=== PATIENT | male | born 1950 | race Caucasian/White ===

== ENCOUNTER → 2020-09-26 15:57 | Outpatient (BNVA) | payer OTHER, SELFPAY | PROVIDERS: Family Provider Nurse Practitioner; PCP Nurse Practitioner; Referring Provider Nurse Practitioner; Visit Provider Podiatrist Foot & Ankle Surgery | DX: M79.671 Pain in right foot (principal) | CPT/HCPCS: 73610; 73630 ==

== ENCOUNTER → 2020-11-28 14:09 | Outpatient (BNVA) | payer OTHER, SELFPAY | PROVIDERS: Family Provider Nurse Practitioner; PCP Nurse Practitioner; Visit Provider Podiatrist Foot & Ankle Surgery | DX: M25.571 Pain in right ankle and joints of right foot (principal); S92.321A Displaced fracture of second metatarsal bone, right foot, initial encounter for closed fracture; X58.XXXA Exposure to other specified factors, initial encounter | CPT/HCPCS: 73610; 73630 ==

== ENCOUNTER → 2021-01-02 08:18 | Outpatient (BNVA) | payer OTHER, SELFPAY | PROVIDERS: Family Provider Nurse Practitioner; PCP Nurse Practitioner; Visit Provider Podiatrist Foot & Ankle Surgery | DX: M25.571 Pain in right ankle and joints of right foot (principal); S92.321A Displaced fracture of second metatarsal bone, right foot, initial encounter for closed fracture; X58.XXXA Exposure to other specified factors, initial encounter | CPT/HCPCS: 73630 ==

== ENCOUNTER → 2021-11-04 14:20 | Outpatient (BNVA) | payer OTHER, SELFPAY | PROVIDERS: Family Provider Nurse Practitioner; PCP Nurse Practitioner; Visit Provider Podiatrist Foot & Ankle Surgery | DX: M79.672 Pain in left foot (principal); S93.102D Unspecified subluxation of left toe(s), subsequent encounter; X58.XXXD Exposure to other specified factors, subsequent encounter | CPT/HCPCS: 73630 ==

== ENCOUNTER → 2022-03-25 13:58 | Outpatient (BNVA) | payer OTHER, SELFPAY | PROVIDERS: Family Provider Nurse Practitioner; PCP Nurse Practitioner; Visit Provider Podiatrist Foot & Ankle Surgery | DX: G57.62 Lesion of plantar nerve, left lower limb (principal); M79.672 Pain in left foot | CPT/HCPCS: 64455; 73630 ==

== ENCOUNTER → 2022-05-15 14:11 | Outpatient (BNVA) | payer OTHER, SELFPAY | PROVIDERS: Family Provider Nurse Practitioner; PCP Nurse Practitioner; Visit Provider Podiatrist Foot & Ankle Surgery | DX: M79.671 Pain in right foot (principal); G57.62 Lesion of plantar nerve, left lower limb; M84.374A Stress fracture, right foot, initial encounter for fracture; W10.8XXA Fall (on) (from) other stairs and steps, initial encounter | CPT/HCPCS: 73630; 99213; 99214 ==

== ENCOUNTER → 2022-07-17 13:01 | Outpatient (BNVA) | payer OTHER, SELFPAY | PROVIDERS: Family Provider Nurse Practitioner; PCP Nurse Practitioner; Visit Provider Podiatrist Foot & Ankle Surgery | DX: M84.374D Stress fracture, right foot, subsequent encounter for fracture with routine healing (principal); G57.62 Lesion of plantar nerve, left lower limb | CPT/HCPCS: 64455; 73630; 99213; J1100; J3301; J3490 ==

== ENCOUNTER → 2023-03-16 08:27 | Outpatient (BNVA) | payer OTHER, SELFPAY | PROVIDERS: Family Provider Nurse Practitioner; PCP Nurse Practitioner; Visit Provider Podiatrist Foot & Ankle Surgery | DX: S93.312A Subluxation of tarsal joint of left foot, initial encounter (principal); X58.XXXA Exposure to other specified factors, initial encounter | CPT/HCPCS: 99213 ==

== ENCOUNTER 2023-05-25 08:39 | Emergency (ER) | payer OTHER, SELFPAY ==
--- NOTE | 2023-05-25 08:41 | XRR_ITS ---
PROCEDURE INFORMATION: Exam: XR Chest Exam date and time: 05/25/2023 9:27 AM Age: 72 years old Clinical indication: Cough and dyspnea; Additional info: Dyspnea/cough TECHNIQUE: Imaging protocol: Radiologic exam of the chest. Views: 1 view. COMPARISON: CT abdomen pelvis w con* [id number] 05/13/2019 10:01 AM FINDINGS: Lungs: No focal airspace disease. Pleural spaces: Unremarkable. No pleural effusion. No pneumothorax. Heart/Mediastinum: Cardiomediastinal silhouette is within normal limits. Bones/joints: Unremarkable. XR/XR chest 1V portable [id number] IMPRESSION: No acute cardiopulmonary abnormality.
--- NOTE | 2023-05-25 08:44 | ED_ITS ---
HPI - SOB/Dyspnea General: Chief Complaint: Upper Respiratory Infection Stated Complaint: Cough, Chest congestion Time Seen by Provider: 05/25/23 08:40 Source: patient Mode of arrival: ambulatory History of Present Illness: HPI Narrative: 72 yo male with history of chronic respiratory illness presents to the emergency room with complaints cough wheezing and shortness of breath over the last few days after he had mowed the lawn had a lot of exposure to dust 2 days ago. He was up most of the night last night he has been using Alupent frequently but has not had very good relief of his symptoms with that. He denies any productive cough or fever. MD elicited complaint: shortness of breath and cough Pertinent past history: COPD Onset (ago): day(s) (2) Exacerbating factors: exertion and coughing Relieving factors: rest Known history of: COPD Associated symptoms: Deny abdominal pain, chest congestion, chest pain, cough, diaphoresis, dizziness, extremity pain, fever(s), hemoptysis, lightheadedness, myalgias, nausea, orthopnea, palpitations, paresthesias, polydipsia, polyuria, rash, sense of impending doom, syncope or vomiting Treatment prior to arrival: bronchodilator Review of Systems Const: Denies: fever(s), chills or diaphoresis ENMT: Denies: throat pain, ear or mastoid pain, nasal discharge or nasal congestion Card: Denies: chest pain, palpitations, lightheadedness, syncope or orthopnea Resp: Reports: dyspnea, non-productive cough and wheezing; Denies: hemoptysis or chest congestion GI: Denies: abdominal pain, nausea or vomiting : Denies: flank pain, dysuria, urinary frequency or urinary urgency Musc: Denies: extremity pain Skin/Breast: Denies: rash or pruritus Neuro: Denies: dizziness Endo: Denies: polyuria or polydipsia PFS ED PFSH: Medical History Borderline personality disorder Social History Smoking and tobacco status: never smoked Physical Exam Const: EXAM LIMITATIONS: altered mental status GENERAL APPEARANCE: cooperative and comfortable ORIENTATION/CONSCIOUSNESS: Yes awake, Yes oriented to person, Yes oriented to place and Yes oriented to time HENMT: COMMON NORMALS: normocephalic, atraumatic and hearing grossly normal bilaterally HEAD & SCALP: normocephalic and atraumatic Resp: AUSCULTATION: wheezes Cardio: COMMON NORMALS: regular rate, regular rhythm and No murmurs present (Cardio) RATE: regular rate RHYTHM: regular rhythm GI: COMMON NORMALS: Soft to palpation and No hepatosplenomegaly present AUSCULTATION: Yes normoactive bowel sounds PALPATION: Yes Soft to palpation, No Tenderness to palpation present (GI), No Guarding due to palpation present (GI) and Yes No hepatosplenomegaly present Extremity: COMMON NORMALS: normal to inspection, capillary refill normal, no clubbing, cyanosis or edema, no calf tenderness and no pedal edema Neuro: SENSORIUM/ORIENTATION: Yes oriented to person, Yes oriented to place and Yes oriented to time Skin: COMMON NORMALS: no rashes or lesions noted GENERAL SKIN EXAM: no rashes or lesions noted Course Vital Signs: Vital signs: Vital Signs Temperature 98.8 F 05/25/23 08:57 Pulse Rate 73 05/25/23 10:30 Respiratory Rate 22 H 05/25/23 09:20 Blood Pressure 135/76 05/25/23 10:30 Pulse Oximetry 94 05/25/23 10:30 Oxygen Delivery Me thod Room Air 05/25/23 09:20 MDM - SOB/Dyspnea Medical Decision Making Exacerbation of asthma. Chest x-ray unremarkable. Started on steroid taper. Gave a refill of DuoNebs and albuterol inhaler. Recheck if not improving. At patient's request also give us small prescription for promethazine with codeine Lab Data Labs/Radiology: Radiology Impressions Chest X-Ray 05/25/23 08:41 IMPRESSION: No acute cardiopulmonary abnormality. Discharge Plan Discharge Patient Disposition: Home Clinical Impression: Asthma exacerbation Condition: Stable Prescriptions: New prednisone 20 mg tablet 20 mg PO TID Qty: 15 0RF Rx Instructions: 1 p.o. 3 times daily x3 days, 1 p.o. twice daily x2 days, 1 p.o. daily x2 days albuterol sulfate 90 mcg/actuation HFA aerosol inhaler 2 inh INHALATION Q4H PRN (Reason: shortness of breath or wheezing) Qty: 18 0RF ipratropium-albuterol 0.5 mg-3 mg(2.5 mg base)/3 mL solution for nebulization 3 ml inhalation Q4H PRN (Reason: shortness of breath or wheezing) Qty: 180 0RF Rx Instructions: until breathing returns to target peak flow/parameters promethazine-codeine 6.25-10 mg/5 mL syrup 10 ml PO Q6H PRN (Reason: cough) Qty: 50 0RF No Action (DME) Custom Accomadative orthotic See Rx Instructions .ROUTE .MEDSUPPLY Qty: 1 0RF Rx Instructions: As directed celecoxib 200 mg Capsule 200 mg PO BID benzonatate 200 mg Capsule 200 mg PO BID garlic 100 mg Tablet 100 mg PO BID alendronate 70 mg Tablet 70 mg PO Q7D Rx Instructions: ON THURSDAY hydroxyzine HCl 50 mg tablet 100 mg PO BEDTIME tramadol 50 mg Tablet 50 mg PO Q6H PRN (Reason: Pain) sildenafil 100 mg Tablet 100 mg PO DAILY PRN (Reason: Sexual Activity) Rx Instructions: administer 30 minutes to 4 hours before activity levothyroxine 75 mcg Tablet 75 mcg PO DAILY milk thistle 150 mg Capsule 150 mg PO DAILY Rx Instructions: give with meal/snack methocarbamol 750 mg Tablet 750 mg PO QID PRN (Reason: Muscle Pain) trazodone 100 mg Tablet 100 mg PO DAILY Iron (ferrous sulfate) 325 mg (65 mg iron) Tablet 325 mg PO DAILY fluticasone propion-salmeterol 500-50 mcg/dose Blister With Device 1 inh INHALATION BID omeprazole 20 mg Capsule,Delayed Release(Dr/Ec) 20 mg PO DAILY montelukast 10 mg Tablet 10 mg PO QPM niacin 250 mg Tablet 250 mg PO DAILY albuterol sulfate 90 mcg/actuation Hfa Aerosol Inhaler 2 puff INHALATION Q6H PRN (Reason: Shortness Of Breath Or Wheezing) CoQ-10 30 mg Capsule 30 mg PO BID Vitamin D3 25 mcg (1,000 unit) Capsule 25 mcg PO DAILY guaifenesin 400 mg Tablet 400 mg PO DAILY tiotropium bromide 1.25 mcg/actuation Mist 2 puff INHALATION Q24H naloxone 4 mg/actuation [place],Non-Aerosol 4 mg INTRANASAL Q3M PRN (Reason: Opioid Overdose) Rx Instructions: spray 1 dose into ONE nostril; alternate nostrils w each dose until help arrives Discharge Orders: Discharge ED (Routine); Ordered 05/25/23 Ordered By: Tj Flynn Referrals: Myriam Rosario FNP [Primary Care Provider] - Discharge Diet: Usual diet Discharge Activity: Increase activity as tolerated Patient Instructions: Opioid Safety, Pain Management Activity Restrictions/Additional Instructions: Recommend steroid taper and aggressive use of the albuterol over the next several days if worsening or change return Coding Level of Care Code 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
[2023-05-25 08:57] VITALS: BP 128/79; PULSE 78; RESP 20; TEMP 37.1; O2SAT 98
[2023-05-25] MEDS: dexamethasone 10 mg/mL INJ IVP (09:11)
[2023-05-25 09:20] VITALS: PULSE 73; RESP 22; O2SAT 97
[2023-05-25] MEDS: ipratropium-albuterol 3 mL Neb INHALATION (09:20)
[2023-05-25 09:27] VITALS: PULSE 71
[2023-05-25 09:45] VITALS: BP 113/90; PULSE 68; O2SAT 100
[2023-05-25 10:30] VITALS: BP 135/76; PULSE 73; O2SAT 94
== END 2023-05-25 10:31 | disposition home or self-care (01) ==
PROVIDERS: Emergency Provider Family Medicine; PCP Nurse Practitioner
DX: J45.901 Unspecified asthma with (acute) exacerbation (principal)
CPT/HCPCS: 71045; 94640; 96374; 99284; J1100

== ENCOUNTER 2023-07-09 20:00 | Outpatient (CLI) | payer OTHER, SELFPAY | END 2023-07-09 20:01 | disposition home or self-care (01) | LOC: SLEEP 07-10 04:05 | PROVIDERS: PCP Nurse Practitioner; Visit Provider Nurse Practitioner | DX: G47.33 Obstructive sleep apnea (adult) (pediatric) (principal) | CPT/HCPCS: 95810 ==

== ENCOUNTER → 2023-08-05 11:25 | Outpatient (BNVA) | payer OTHER, SELFPAY | PROVIDERS: PCP Nurse Practitioner; Visit Provider Internal Medicine | DX: M54.50 Low back pain, unspecified (principal); L40.9 Psoriasis, unspecified; M47.898 Other spondylosis, sacral and sacrococcygeal region; M19.042 Primary osteoarthritis, left hand | CPT/HCPCS: 36415; 72202; 73120; 80053; 82550; 83516; 83520; 84100; 84443; 84550; 85025; 85651; 86140; 86160; 86162; 86200; 86235; 86255; 86376; 86431; 86704; 86803; 87340; 99204 ==

== ENCOUNTER → 2023-08-31 08:10 | Outpatient (BNVA) | payer OTHER, SELFPAY | PROVIDERS: PCP Nurse Practitioner; Visit Provider Podiatrist Foot & Ankle Surgery | DX: S93.312A Subluxation of tarsal joint of left foot, initial encounter; X58.XXXA Exposure to other specified factors, initial encounter | CPT/HCPCS: 99213 ==

== ENCOUNTER → 2023-09-01 11:16 | Outpatient (BNVA) | payer OTHER, SELFPAY | PROVIDERS: PCP Nurse Practitioner; Visit Provider Internal Medicine | DX: R76.8 Other specified abnormal immunological findings in serum (principal); M19.90 Unspecified osteoarthritis, unspecified site; G62.9 Polyneuropathy, unspecified | CPT/HCPCS: 99214 ==

== ENCOUNTER 2023-09-22 20:00 | Outpatient (CLI) | payer OTHER, SELFPAY | END 2023-09-22 20:01 | disposition home or self-care (01) | LOC: SLEEP 09-23 05:55 | PROVIDERS: PCP Nurse Practitioner; Visit Provider Nurse Practitioner | DX: G47.33 Obstructive sleep apnea (adult) (pediatric) (principal); M47.10 Other spondylosis with myelopathy, site unspecified | CPT/HCPCS: 95811 ==

== ENCOUNTER → 2024-01-18 12:54 | Outpatient (BNVA) | payer OTHER, SELFPAY | PROVIDERS: PCP Nurse Practitioner; Visit Provider Podiatrist Foot & Ankle Surgery | DX: S93.312A Subluxation of tarsal joint of left foot, initial encounter (principal); X58.XXXA Exposure to other specified factors, initial encounter; M79.672 Pain in left foot | CPT/HCPCS: 20600; J1100; J3301; J3490 ==

== ENCOUNTER → 2024-04-05 08:41 | Outpatient (BNVA) | payer OTHER, SELFPAY | PROVIDERS: PCP Nurse Practitioner; Referring Provider Anesthesiology Pain Medicine; Visit Provider Orthopaedic Surgery | DX: M54.9 Dorsalgia, unspecified (principal); M54.50 Low back pain, unspecified; G89.29 Other chronic pain; M54.41 Lumbago with sciatica, right side; M54.42 Lumbago with sciatica, left side | CPT/HCPCS: 36415; 72110; 80053; 81003; 85025; 99204 ==

== ENCOUNTER → 2024-04-26 09:11 | Outpatient (BNVA) | payer SELFPAY | PROVIDERS: PCP Nurse Practitioner; Visit Provider Family Medicine | DX: Z01.818 Encounter for other preprocedural examination (principal) | CPT/HCPCS: 93005 ==

== ENCOUNTER 2024-04-29 07:26 | Day surgery (SDC) | payer OTHER, SELFPAY ==
[2024-04-29] VITALS (10 sets, daily range): BP systolic 130–151; BP diastolic 63–76; PULSE 57–67; RESP 12–18; TEMP 36.1; O2SAT 94–100; BMI 26.5
[2024-04-29] MEDS: sodium chloride 0.9% 1,000 ML 30 ML IV (08:08)
--- NOTE | 2024-04-29 08:30 | ANES.PREANE2 ---
Pre-Anesthetic Assessment Height/Weight: Height 1.6 m Weight 68.039 kg Temp Pulse Resp BP Pulse Ox O2 Del Method 97 F L 60 16 130/63 98 Room Air 04/29/24 07:51 04/29/24 07:51 04/29/24 07:51 04/29/24 07:51 04/29/24 07:51 04/29/24 07:51 Preop Diagnosis: Lumbar stenosis with neurogenic claudication Operation Date: 04/29/24 09:10 Proposed Procedures p Spinal Cord Stimulator Placement and Spinal cord generator placement(Not Applicable) - Shadi Joyner, DO Familial anesthetic complications: None Was Beta Ana taken within 24 hours: N/A Was Clonidine taken within 24 hours: N/A Last intake: Intake Last Liquid Date 04/28/24 Last Liquid Time 21:00 Last Solid Date 04/28/24 Last Solid Time 16:00 Social No alcohol and No tobacco Exam alert, oriented x 3, clear to auscultation bilaterally and regular rate & rhythm Airway Mallampati: Class I Dentition: full Pulmonary Sleep Apnea CV/HEM Coronary Artery Disease (CABG in 2005 able to achieve greater than 4 METS w/ out cardiac sxs) GI Gastroesophageal Reflux Disease Metabolic Thyroid Disease Anesthetic Plan ASA status: 3 Anesthesia: General Risk of > 500 ml blood loss (7ml/kg in children): No Medications/Allergies Home Medications Medication Instructions Recorded Confirmed Last Taken Type Custom Accomadative orthotic #1 ea 01/02/21 04/05/24 Unknown Rx albuterol sulfate 90 mcg/actuation 2 inh inhalation Q4H PRN shortness 05/25/23 04/28/24 04/29/24 06:30 Rx aerosol inhaler of breath or wheezing #18 grams alendronate 70 mg tablet 70 mg PO Q7D 05/25/23 04/28/24 04/24/24 History cholecalciferol (vitamin D3) 25 25 mcg PO DAILY 05/25/23 04/28/24 04/28/24 History mcg (1,000 unit) capsule (Vitamin D3) coenzyme Q10 30 mg capsule 30 mg PO BID 05/25/23 04/28/24 04/28/24 History ferrous sulfate 325 mg (65 mg 325 mg PO DAILY 05/25/23 04/28/24 04/28/24 History iron) tablet (Iron (ferrous sulfate)) fluticasone 500 mcg-salmeterol 50 1 inh inhalation BID 05/25/23 04/28/24 04/28/24 History mcg/dose blistr powdr for inhalation garlic 100 mg tablet 100 mg PO BID 05/25/23 04/28/24 04/28/24 History guaifenesin 400 mg tablet 400 mg PO DAILY 05/25/23 04/28/24 05/25/23 History hydroxyzine HCl 50 mg tablet 100 mg PO BEDTIME 05/25/23 04/28/24 04/28/24 History ipratropium 0.5 mg-albuterol 3 mg 3 ml inhalation Q4H PRN shortness 05/25/23 04/28/24 04/28/24 Rx (2.5 mg base)/3 mL nebulization of breath or wheezing #180 mL soln levothyroxine 75 mcg tablet 75 mcg PO DAILY 05/25/23 04/28/24 04/29/24 06:30 History methocarbamol 750 mg tablet 750 mg PO QID PRN Muscle Pain 05/25/23 04/28/24 04/28/24 History milk thistle 150 mg capsule 150 mg PO DAILY 05/25/23 04/28/24 04/28/24 History montelukast 10 mg tablet 10 mg PO QPM 05/25/23 04/28/24 04/28/24 History naloxone 4 mg/actuation nasal spray 4 mg intranasal Q3M PRN Opioid 05/25/23 04/28/24 Unknown History Overdose niacin 250 mg tablet 250 mg PO DAILY 05/25/23 04/28/24 04/28/24 History omeprazole 20 mg capsule,delayed 20 mg PO DAILY 05/25/23 04/28/24 04/29/24 06:30 History release promethazine 6.25 mg-codeine 10 10 ml PO Q6H PRN cough #50 mL 05/25/23 04/28/24 Unknown Rx mg/5 mL syrup tiotropium bromide 1.25 2 puff inhalation Q24H 05/25/23 04/28/24 04/28/24 History mcg/actuation mist for inhalation tramadol 50 mg tablet 50 mg PO Q6H PRN Pain 05/25/23 04/28/24 Unknown History trazodone 100 mg tablet 100 mg PO DAILY 05/25/23 04/28/2424 History benralizumab 30 mg/mL subcutaneous 30 mg SUBCUT .q3 mon 04/26/24 04/28/24 04/28/24 History syringe (Fasenra) naproxen 500 mg tablet (Naprosyn) 500 mg PO BID 04/26/24 04/28/24 Unknown History Allergies Allergy/AdvReac Type Severity Reaction Status Date / Time meloxicam [From Mob] Allergy Intermediate rash Verified 04/29/24 07:37 chloroquine Allergy ADR-Depress Verified 04/29/24 07:37 ion Current Medications Generic Name Dose Route Start Last Admin Trade Name Freq PRN Reason Stop Dose Admin Sodium Chloride 1,000 mls @ 30 mls/hr 04/29/24 07:45 04/29/24 08:08 Sodium Chloride 0.9% IV 04/30/24 07:44 30 mls/hr .Q24H NICHOLAS Administration PFSH Anesthesia Medical History Lumbago Osteoarthritis Borderline personality disorder Social History Smoking and tobacco/nicotine status: never used tobacco/nicotine Data Anesthesia Cardiac Studies: No Data to Display
--- NOTE | 2024-04-29 08:44 | W.PM.OPSUD ---
Surgery/Procedure H&P Update DATE OF PROCEDURE: April 29, 2024 DATE H&P PERFORMED: 04/26/24 H&P UPDATE INFORMATION: I have reviewed H&P completed within last 30 days, I have examined patient prior to procedure and No changes to prior documentation PREOP DIAGNOSIS: Lumbar stenosis with neurogenic claudication PLANNED PROCEDURE: Operation Date: 04/29/24 09:10 Proposed Procedures p Spinal Cord Stimulator Placement and Spinal cord generator placement(Not Applicable) - Shadi Joyner DO
[2024-04-29] MEDS: ceFAZolin 2,000 MG in sodium chloride 0.9% (plus) 50 ML 100 MG IV (09:21)
[2024-04-29] MEDS: lidocaine-epi 1% PF 1:200,000 30 mL SDV INJECTION (09:42)
--- NOTE | 2024-04-29 11:05 | XR_ITS ---
WS: [id number] XR lumbar spine 2-3V* [id number] REASON FOR EXAM: SPINAL CORD STIMULATOR PLACEMENT FINDINGS: Placement of dorsal column stimulator at the lower thoracic level. The lateral view demonstrates a st imulator to be in the posterior next thoracic spinal canal. XR/XR lumbar spine 2-3V* [id number] IMPRESSION: Dorsal column stimulator placement as above.
--- NOTE | 2024-04-29 11:38 | P.OP_ITS ---
Operative Report Date of procedure: April 29, 2024 Pre-op diagnosis: Lumbar stenosis with neurogenic claudication Post-op diagnosis: same Procedure done: 1. Placement of neurostimulator 2. Placement of neurostimulator battery Surgeon: Shadi Joyner DO Estimated blood loss (mL): 50 Procedure: 1. Placement of neurostimulator 2. Placement of neurostimulator battery patient brought the operative suite after undergoing anesthesia he was placed in the prone position. All areas impingement well-padded. Patient's prepped draped normal sterile fashion. Attention was was brought to the placement of the neurostimulator. This was done by making skin incision over the T9-10 level. This confirmed under x-ray guidance. The subperiosteal dissection was made at the transverse processes of T9-T10 retractors were placed. Laminectomy was performed using rongeur and high-speed drill and Kerrison rongeurs ligamentum flavum was taken down dura was exposed. The trial was slid up. And then the nerve stimulator paddle was placed. Patient has scoliotic curve and cannot get it directly in the middle however confirm with the [employer] rep that the T8 vertebral body is completely covered and this was the main goal than half of the T7 was covered. The wires were sutured into the spinous process of T10. Next tension was brought to performing the incision over the left flank for the battery. This was done using knife followed by Bovie subcutaneous pocket was developed. Using Bovie and finger dissection. The wires were then pulled through the battery incision from the laminectomy incision. Wires were pulled through placing the battery and confirmed that they were working. Battery was then placed on top of the wires inside of the battery pouch wounds were then irrigated and closed with Vicryl and Monocryl suture. Sterile dressings were applied patient transferred to the PACU in stable condition.
[2024-04-29] MEDS: HYDROcodone-acetaminophen 5-325 mg Tablet 1 TAB PO (12:17)
--- NOTE | 2024-04-29 12:45 | ANE.PACU2 ---
Inpatient post-anesthesia follow up: Airway intact: Yes Vital signs: Temperature 97 F Pulse Rate 58 Respiratory Rate 18 Blood Pressure 141/71 Pulse Oximetry 94 Oxygen Delivery Me thod Room Air Oxygen Flow Rate 6 Fraction of Inspir ed Oxygen Hydration adequate: Yes Nausea and vomiting: No Pain level: 1 Mental status: Baseline
== END 2024-04-29 12:48 | disposition home or self-care (01) ==
PROVIDERS: PCP Nurse Practitioner; Visit Provider Orthopaedic Surgery
PROC: (CPT 63685; principal; 2024-04-29 09:00)
DX: M48.062 Spinal stenosis, lumbar region with neurogenic claudication (principal); G47.30 Sleep apnea, unspecified; I25.10 Atherosclerotic heart disease of native coronary artery without angina pectoris; Z95.1 Presence of aortocoronary bypass graft; K21.9 Gastro-esophageal reflux disease without esophagitis; M19.90 Unspecified osteoarthritis, unspecified site
CPT/HCPCS: 63655; 63685; 72100; 76000; C1778; C1820; J0690; J1100; J2405; J2704; J2710; J3010; J3490; J7030

== ENCOUNTER → 2024-05-12 14:09 | Outpatient (BNVA) | payer OTHER, SELFPAY | PROVIDERS: PCP Nurse Practitioner; Visit Provider Orthopaedic Surgery | DX: M54.9 Dorsalgia, unspecified (principal); Z48.89 Encounter for other specified surgical aftercare | CPT/HCPCS: 72072; 72100; 99024 ==

== ENCOUNTER → 2024-06-01 14:45 | Outpatient (BNVA) | payer OTHER, SELFPAY | PROVIDERS: PCP Nurse Practitioner; Visit Provider Podiatrist Foot & Ankle Surgery | DX: S93.312A Subluxation of tarsal joint of left foot, initial encounter (principal); X58.XXXA Exposure to other specified factors, initial encounter | CPT/HCPCS: 99213 ==

== ENCOUNTER → 2024-06-09 14:46 | Outpatient (BNVA) | payer OTHER, SELFPAY | PROVIDERS: PCP Nurse Practitioner; Visit Provider Orthopaedic Surgery | DX: Z48.89 Encounter for other specified surgical aftercare (principal) | CPT/HCPCS: 72070; 72100; 99024 ==

== ENCOUNTER → 2024-08-10 12:53 | Outpatient (BNVA) | payer OTHER, SELFPAY | PROVIDERS: PCP Nurse Practitioner; Referring Provider Nurse Practitioner; Visit Provider Surgery | DX: K43.2 Incisional hernia without obstruction or gangrene | CPT/HCPCS: 99203 ==

== ENCOUNTER 2024-08-25 12:04 | Outpatient (CLI) | payer OTHER, SELFPAY ==
--- NOTE | 2024-08-25 12:30 | CT_ITS ---
WS: [id number] CT ABDOMEN AND PELVIS WITH CONTRAST HISTORY: Ventral Hernia TECHNIQUE: Imaging performed of the abdomen and pelvis with IV contrast. Single phase imaging of the abdomen. Coronal and sagittal reformats are submitted. All CT scans at [facility] use at [address] [facility] one of these dose optimization techniques: automated exposure control; mA and/or kV adjustment per patient size (includes targeted exams where dose is matched to clinical indication); or iterative re construction. IV CONTRAST: Omnipaque 350; 100 mL IV. Oral contrast: Yes. DLP: 309.28 mGy.cm COMPARISON: 05/13/2019 Lower thorax: Dependent changes at the lung bases. Slight elevation of the LEFT hemidiaphragm. Heart is normal size. No hiatal hernia. Liver/biliary system: Normal size with no intrahepatic dilatation. Gallbladder: Slightly contracted gallbladder. No adjacent inflammation. Pancreas: Normal size pancreas and pancreatic duct. No adjacent inflammation. Spleen: Normal size spleen. No mass or infarct. Adrenal glands: Normal. Right kidney: Exophytic cyst from the superior pole measures 12 x 10 mm. No change since 05/13/2019. N onobstructing calcifications in the lower pole. Left kidney: Normal kidney with no obstruction. Nonobstructing calcifications in the lower pole. Aorta: Mild atherosclerosis with no aneurysm. Mild atherosclerotic plaque at the origin of the SMA an d celiac axis. Lymphadenopathy: None. Free fluid: None. GI tract: Stomach is well distended with oral contrast. No small bowel obstruction. Moderate diffuse constipation. Mild sigmoid diverticulosis. Prior appendectomy. Abdominal wall: Small ventral abdominal wall hernia at the umbilicus contains fat only. In the suprau mbilical abdominal wall extending just to the LEFT of midline is a hernia measuring 2.4 cm at its carmen fice. Herniated omental fat but no GI tract. Very slight stranding within the omental fat. No additio nal hernias are identified. Pelvis: No free fluid. Urinary bladder is not distended. Soft tissue nodular enhancement measuring 14 x 11 mm is probably at the base of the urethra. This was not present in 2019. Bones: Degenerative changes in the lumbar spine. There are a few scattered lytic areas within the lum bar vertebral bodies which are also present in 2019. Prior LEFT hip arthroplasty. CT/CT abdomen pelvis w con* [id number] IMPRESSION: 1. Supraumbilical ventral abdominal wall hernia contains omental fat only. Her alexis orifice is just slightly to the LEFT of midline measuring 2.4 cm. 2. There is an additional very small umbilical hernia containing fat only. 3. Bilateral nonobstructing renal calculi. Simple cyst upper pole RIGHT kidney . 4. Focal soft tissue nodular enhancement at the base of the urethra measures 1 4 x 11 mm. This was not present in 2009. This could potentially be a polyp or n eoplasm. Consider evaluation by urology.
[2024-08-25 13:58] LABS: Blood Urea Nitrogen 20 mg/dL (8-23)
[2024-08-25] MEDS: iohexol 350 mg/mL 500 mL Btl (per mL) IV (13:58)
[2024-08-25] MEDS: iohexol 350 mg/mL 500 mL Btl (per mL) PO (13:59)
== END 2024-08-25 12:05 | disposition home or self-care (01) ==
LOC: RAD 12:05
PROVIDERS: PCP Nurse Practitioner; Visit Provider Surgery
DX: K43.9 Ventral hernia without obstruction or gangrene (principal); K42.9 Umbilical hernia without obstruction or gangrene; N28.1 Cyst of kidney, acquired; N20.0 Calculus of kidney; N36.8 Other specified disorders of urethra; K57.90 Diverticulosis of intestine, part unspecified, without perforation or abscess without bleeding; M51.369 Other intervertebral disc degeneration, lumbar region without mention of lumbar back pain or lower extremity pain; Z90.49 Acquired absence of other specified parts of digestive tract; Z96.642 Presence of left artificial hip joint
CPT/HCPCS: 74177; 82565; 84520

== ENCOUNTER → 2024-09-21 09:20 | Outpatient (BNVA) | payer OTHER, SELFPAY | PROVIDERS: PCP Nurse Practitioner; Visit Provider Surgery | DX: Z09 Encounter for follow-up examination after completed treatment for conditions other than malignant neoplasm (principal) | CPT/HCPCS: 99204; 99214 ==

== ENCOUNTER 2024-10-17 07:57 | Day surgery (SDC) | payer OTHER, SELFPAY ==
[2024-10-17] VITALS (11 sets, daily range): BP systolic 112–149; BP diastolic 60–92; PULSE 76–84; RESP 15–20; TEMP 36.2–36.7; O2SAT 92–99; BMI 26.0
--- NOTE | 2024-10-17 07:04 | W.PM.OPSUD ---
Surgery/Procedure H&P Update DATE OF PROCEDURE: October 17, 2024 DATE H&P PERFORMED: 09/21/24 H&P UPDATE INFORMATION: I have reviewed H&P completed within last 30 days, I have examined patient prior to procedure, No changes to prior documentation and H&P is in [facility] EMR on date indicated PLANNED PROCEDURE: Operation Date: 10/17/24 09:45 Proposed Procedures p lap possible open ventral hernia repair with mesh [id number], K43.2(Not Applicable) - Willam Rodriguez MD
--- NOTE | 2024-10-17 08:40 | ANES.PREANE2 ---
Pre-Anesthetic Assessment Height/Weight: Height 1.6 m Preop Diagnosis: Laparoscopic possible open ventral incisional hernia pair with mesh Operation Date: 10/17/24 09:45 Proposed Procedures p lap possible open ventral hernia repair with mesh [id number], K43.2(Not Applicable) - Willam Rodriguez MD Was Beta Ana taken within 24 hours: N/A Was Clonidine taken within 24 hours: N/A Social No tobacco Exam alert, oriented x 3, clear to auscultation bilaterally and regular rate & rhythm Airway Submandibular: within normal limits Cervical ROM: within normal limits Mallampati: Class II Dentition: full History/ROS No significant history except as noted and No significant complaints Pulmonary Asthma, Cough and Exertional Dyspnea CV/HEM Coronary Artery Disease 4 vessel bypass 2005 None reported Hepatic None reported GI None reported Metabolic None reported Musc/skel Lower Back Pain DC stimulator Neuropsych Borderline personality disorder Anesthetic Plan ASA status: 3 Anesthesia: Anesthesia Evaluation and General Risk of > 500 ml blood loss (7ml/kg in children): No Medications/Allergies Home Medications Medication Instructions Recorded Confirmed Last Taken Type Custom Accomadative orthotic #1 ea 01/02/21 09/21/24 Unknown Rx albuterol sulfate 90 mcg/actuation 2 inh inhalation Q4H PRN shortness 05/25/23 10/13/24 10/12/24 Rx aerosol inhaler of breath or wheezing #18 grams alendronate 70 mg tablet 70 mg PO Q7D 05/25/23 10/13/24 10/09/24 History cholecalciferol (vitamin D3) 25 25 mcg PO DAILY 05/25/23 10/17/24 10/16/24 History mcg (1,000 unit) capsule (Vitamin D3) coenzyme Q10 30 mg capsule 30 mg PO BID 05/25/23 10/17/24 10/16/24 History ferrous sulfate 325 mg (65 mg 325 mg PO DAILY 05/25/23 10/17/24 10/16/24 History iron) tablet (Iron (ferrous sulfate)) fluticasone 500 mcg-salmeterol 50 1 inh inhalation BID 05/25/23 10/17/24 10/17/24 History mcg/dose blistr powdr for inhalation garlic 100 mg tablet 100 mg PO BID 05/25/23 10/17/24 10/16/24 History guaifenesin 400 mg tablet 400 mg PO DAILY 05/25/23 10/17/24 10/16/24 History hydroxyzine HCl 50 mg tablet 100 mg PO BEDTIME 05/25/23 10/17/24 10/16/24 History ipratropium 0.5 mg-albuterol 3 mg 3 ml inhalation Q4H PRN shortness 05/25/23 10/17/24 04/28/24 Rx (2.5 mg base)/3 mL nebulization of breath or wheezing #180 mL soln levothyroxine 75 mcg tablet 75 mcg PO DAILY 05/25/23 10/17/24 10/16/24 History methocarbamol 750 mg tablet 750 mg PO QID PRN Muscle Pain 05/25/23 10/17/24 10/16/24 History milk thistle 150 mg capsule 150 mg PO DAILY 05/25/23 10/17/24 10/16/24 History montelukast 10 mg tablet 10 mg PO QPM 05/25/23 10/17/24 10/16/24 History niacin 250 mg tablet 250 mg PO DAILY 05/25/23 10/17/24 10/16/24 History omeprazole 20 mg capsule,delayed 20 mg PO DAILY 05/25/23 10/17/24 10/16/24 History release tiotropium bromide 1.25 2 puff inhalation Q24H 05/25/23 10/17/24 10/17/24 History mcg/actuation mist for inhalation tramadol 50 mg tablet 50 mg PO Q6H PRN Pain 05/25/23 10/17/24 10/16/24 History trazodone 100 mg tablet 100 mg PO DAILY 05/25/23 10/17/24 10/16/24 History benralizumab 30 mg/mL subcutaneous 30 mg SUBCUT .q3 mon 04/26/24 10/13/24 09/07/24 History syringe (Fasenra) naproxen 500 mg tablet (Naprosyn) 500 mg PO BID 04/26/24 10/13/24 10/13/24 History Allergies Allergy/AdvReac Type Severity Reaction Status Date / Time meloxicam [From Mobic] Allergy Intermediate rash Verified 09/21/24 09:23 chloroquine Allergy ADR-Depress Verified 09/21/24 09:23 ion [facility] Anesthesia Medical History (Updated 09/21/24 @ 09:31 by COREY Adame) Lumbago Osteoarthritis Borderline personality disorder Family History Mother Colon cancer Social History Smoking and tobacco/nicotine status: never used tobacco/nicotine Substance/Drug Use: former Data Anesthesia Cardiac Studies: No Data to Display
[2024-10-17] MEDS: albuterol 2.5 mg/3 mL Neb INHALATION (08:51)
[2024-10-17] MEDS: sodium chloride 0.9% 1,000 ML 30 ML IV (09:05)
[2024-10-17] MEDS: ceFAZolin 2,000 mg SDV 2000 MG IVP (09:13)
[2024-10-17] MEDS: BUPivacaine 0.25% INJ 30 mL INJECTION (10:57)
[2024-10-17] MEDS: lidocaine-epi 1% PF 1:200,000 30 mL SDV INJECTION (11:13)
--- NOTE | 2024-10-17 11:20 | P.OP_ITS ---
Operative Report Date of procedure: October 17, 2024 Pre-op diagnosis: Ventral incisional hernia Post-op diagnosis: Epigastric ventral incisional hernia, umbilical hernia. Post-op findings: There was an epigastric ventral incisional hernia containing fat from the falciform ligament, there was an umbilical hernia containing fat from the infraumbilical fat. Procedure done: Laparoscopic ventral incisional hernia repair with mesh, transversus abdominis block Implants: 6 inches ventral light mesh Specimens removed/disposition: None Pathology: None Surgeon: Willam Rodriguez MD [facility] Coordinator: KELLY OR STaff Estimated blood loss: 5 Complications: none Brief History: 74-year-old with a ventral incisional hernia who presented to my office for sascha luandrea, after discussion we will resume benefits as documented my preop note we decided to proceed. Procedure: Patient was brought into the OR, he was placed in the supine position. General anesthesia was then given. The abdomen was accessed via Optiview trocar measuring 5 mm in the left upper quadrant position, initial pneumoperitoneum was achieved and no evidence of visceral injury during entry was noted. Additional 5 mm trocars were placed in the right upper quadrant and right lower quadrant, abdomen metered trocar was placed in the right flank under direct visualization. 2 hernia defects were identified, the epigastric hernia containing significant amount of fat arising from the falciform ligament, this fat was reduced into the abdominal cavity with the help of LigaSure. The falciform ligament was then taken down to allow for proper landing zone in the top aspect of the hernia. I then placed my attention to the umbilical hernia, small amount of fat was reduced, I then proceeded to clear the periumbilical fat to allow for a good landing zone for the hernia, this was done with LigaSure. The milk hernia measured about 0.5 cm and I did not consider that closure of the defect was necessary. The supraumbilical hernia measure about 3 Cm and therefore I decided to proceed with laparoscopic closure of the defect, I did this using #2-0 STRATAFIX suture. Once the defect was completely closed I proceeded to insert into the abdomen as [address] mesh. The positioning suture was then retrieved via the midline in the supraumbilical location with a suture passer. I then proceeded to fix the mesh to the anterior abdominal wall in a double crown fashion using absorbable tackers. The exoskeleton of the mesh was retrieved. Adequate coverage of the hernia defects and good opposition of the mesh to the anterior abdominal wall was noted. No bleeding was noted. Then mL of Marcaine was infiltrated in the left transverse abdominal muscle and 10 mL of Marcaine was infiltrated in the right transverses abdominal muscle under direct visualization. I then proceeded to remove the 12 mm trocar, the trocar site was then closed under direct visualization with a 0 Vicryl using Harpreet-Sabiha suture passer. The left upper quadrant trocar and the right lower quadrant trocars were removed under direct visualization, no evidence of bleeding at this point. The right upper quadrant trocar was used to evacuate the pneumoperitoneum and subsequently removed. This was done under direct visualization to ensure good positioning of the mesh, the intestine was completely covered with omentum before deflating the abdomen. The wounds were closed in layers using #3-0 Vicryl for the subcutaneous tissue #4 Monocryl for the skin and Dermabond was applied. At the end of the procedure all counts were correct, the patient tolerated well the procedure was transferred to PACU in stable condition.
[2024-10-17] MEDS: HYDROmorphone 1 mg/mL INJ 1 mL 0.5 MG IVP (11:50)
[2024-10-17] MEDS: oxyCODONE 5 mg IR Tab/Cap PO (12:19)
--- NOTE | 2024-10-17 13:25 | ANE.PACU2 ---
Inpatient post-anesthesia follow up: Airway intact: Yes Vital signs: Temperature 97.5 F Pulse Rate 81 Respiratory Rate 15 Blood Pressure 112/62 Pulse Oximetry 94 Oxygen Delivery Me thod Room Air Oxygen Flow Rate 6 Fraction of Inspir ed Oxygen Hydration adequate: Yes Nausea and vomiting: No Pain level: 1 Mental status: Baseline
== END 2024-10-17 13:25 | disposition home or self-care (01) ==
PROVIDERS: PCP Nurse Practitioner; Visit Provider Surgery
PROC: 0WQF4ZZ Repair Abdominal Wall, Percutaneous Endoscopic Approach (ICD-10-PCS; CPT 49593; principal; 2024-10-17 09:35)
DX: K43.2 Incisional hernia without obstruction or gangrene (principal); I25.10 Atherosclerotic heart disease of native coronary artery without angina pectoris; Z95.1 Presence of aortocoronary bypass graft
CPT/HCPCS: 49593; J0131; J0690; J1100; J1171; J2405; J2704; J3010; J3490; J7030; J7613

== ENCOUNTER → 2024-11-02 08:25 | Outpatient (BNVA) | payer OTHER, SELFPAY | PROVIDERS: PCP Nurse Practitioner; Visit Provider Surgery | DX: Z98.890 Other specified postprocedural states (principal) | CPT/HCPCS: 99024 ==